=== PATIENT | male | born 1990 | race Caucasian/White ===

== ENCOUNTER 2022-07-24 14:24 | Emergency (ER) | payer OTHER ==
[~2022-07-24] VITALS: Ht 185.4 cm; Wt 72.6 kg
[2022-07-24] MEDS ORDERED: MULTI VITAMIN1 EACH PO (15:00)
== END 2022-07-24 19:59 | disposition home or self-care (01) ==
LOC: ER 14:24
DX: K40.90 Unilateral inguinal hernia, without obstruction or gangrene, not specified as recurrent (principal); Z88.0 Allergy status to penicillin